=== PATIENT | female | born 1955 | race African-American/Black ===

== ENCOUNTER 2018-08-28 03:28 | Emergency (ER) | payer MEDICAID ==
[~2018-08-28] VITALS: Ht 157.5 cm; Wt 85.0 kg
[2018-08-28] MEDS ORDERED: SODIUM CHLORIDE FLUSH 10ML SYR IVF ONE (03:30)
--- NOTE | 2018-08-28 03:43 | NUR ---
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 DEVELOPED CP A COUPLE HOURS AGO "IT FEELS TIGHT ACROSS MY CHEST" (10/26). EKG DONE ON ARRIVAL. HEART, SPO2, AND BP MONITORS PLACED. PT. STATES "I WAS TUBED A WEEK AGO IN [place] AND THEY SAID I HAVE A BLOOD CLOT IN MY LUNG SO NOW I AM TAKING ELEQUIS." PT. REPORTS HAS BEEN TAKING MEDS SHE IS SUPPOSED TO. WARM BLANKET PROVIDED. DR. JACINTO HAS BEEN IN FOR EVAL AND TO DISCUSS POC.
[2018-08-28] MEDS ORDERED: APIX5TAB PO (03:48)
[2018-08-28] MEDS ORDERED: methylPREDNISolone SOD SUCC 125 MG/2 ML ONE (03:50)
--- NOTE | 2018-08-28 03:58 | NUR ---
PT. MEDICATED PER MAR. STATES "YOU NEED TO BRING ME A BLANKET AND SOME SOCKS." PT. PROVIDED WITH SOCKS AND A 2ND BLANKET PER REQUEST. ALL SAFETY MEASURES MAINTAINED.
[2018-08-28] MEDS ORDERED: methylPREDNISolone SOD SUCC 40 MG/ML IM ONE (04:00)
--- NOTE | 2018-08-28 04:04 | NUR ---
DR. JAICNTO MADE AWARE OF PT. INCREASED WORK OF BREATHING AND INCREASE IN RESPIRATIONS. PT. APPEART TO BE IN MILD RESP DISTRESS AT THIS TIME. NEW ORDERS RECEIVED.
[2018-08-28 04:12] LABS: BASOPHILS # (AUTO) 0.05 x10^3/uL (0-0.1); BASOPHILS % (AUTO) 1 % (0-1); EOSINOPHILS # (AUTO) 0.27 x10^3/uL (0-0.4); EOSINOPHILS % (AUTO) 4 % (1-7); LYMPHOCYTES # (AUTO) 2.25 x10^3/uL (1-3.4); LYMPHOCYTES % (AUTO) 31 % (22-44); MD NO; MEAN PLATELET VOLUME 7.7 fL (7.4-10.4); MONOCYTES # (AUTO) 0.55 x10^3/uL (0.2-0.8); MONOCYTES % (AUTO) 8 % (2-9); NEUTROPHILS # (AUTO) 4.23 x10^3/uL (1.8-6.8); NEUTROPHILS % (AUTO) 58 % (42-75); PLATELET COUNT 345 x10^3/uL (130-400)
[2018-08-28 04:20] LABS: ALBUMIN 2.7 g/dL (3.4-5.0); ANION GAP 8 mmol/L (5-15); CALCIUM 7.4 mg/dL (8.5-10.1); CHLORIDE 111 mmol/L (98-107)
[2018-08-28 04:26] LABS: ALANINE AMINOTRANSFERASE 30 U/L (12-78); ALKALINE PHOSPHATASE 62 U/L (45-117); BILIRUBIN,TOTAL 0.5 mg/dL (0.2-1.0); TOTAL PROTEIN 5.7 g/dL (6.4-8.2); TROPONIN I < 0.015 ng/mL (0.000-0.045)
[2018-08-28] MEDS ORDERED: ALBUTEROL/IPRATROPIUM 2.5MG/0.5MG, 3 ML NPPB ONE (04:30)
--- NOTE | 2018-08-28 04:35 | NUR ---
PT. AWAITING RT [place] PRIOR TO D/C
[2018-08-28] MEDS ORDERED: ALBUTEROL/IPRATROPIUM 2.5MG/0.5MG, 3 ML ONE (04:41)
[2018-08-28 04:54] VITALS: BP 140/81
[2018-08-28 04:55] LABS: INTERNATIONAL NORMALIZED RATIO 1.02 (0.93-1.1); PROTHROMBIN TIME 10.7 Seconds (9.6-11.5)
[2018-08-28 16:29] LABS: RED BLOOD COUNT 3.91 x10^6/uL (3.82-5.3)
[2018-08-28 16:30] LABS: MEAN CORPUSCULAR HEMOGLOBIN 30.5 pg (27.0-34.8); MEAN CORPUSCULAR HGB CONC 32.3 g/dL (32.4-35.8); MEAN CORPUSCULAR VOLUME 94.4 fL (80-100); RED CELL DISTRIBUTION WIDTH 17.1 % (9.6-15.2)
[2018-08-28 16:31] LABS: CREATININE 0.83 mg/dL (0.55-1.02)
== END 2018-08-28 04:54 | disposition home or self-care (01) ==
LOC: EDSEX 03:28 → ED 04:47
DX: J44.1 Chronic obstructive pulmonary disease with (acute) exacerbation (principal); Z72.9 Problem related to lifestyle, unspecified; Z87.891 Personal history of nicotine dependence
CPT/HCPCS: 36415; 71045; 80053; 83880; 84484; 85025; 85610; 85730; 93005; 94640; 96372; 99284; J2920; J7620